=== PATIENT | female | born 1995 | race Hispanic/Latino ===

== ENCOUNTER 2017-10-28 21:41 | Emergency (ER) | payer SELFPAY, OTHER ==
[2017-10-28 23:55] LABS: CONTROL LINE UCG INT CTR LINE PRESENT; URINE PREG TEST NEGATIVE (NEGATIVE)
[2017-10-28 23:56] LABS: KETONE, URINE AUTO RFX TRACE mg/dL (NEGATIVE); LEUKOCYTE ESTERASE UR AUTO RFX NEGATIVE (NEGATIVE); MUCUS, URINE RFX SMALL (NEGATIVE); NITRITE, URINE AUTO RFX NEGATIVE (NEGATIVE); RBC, URINE AUTO RFX 0 /HPF (0-3); SPECIFIC GRAVITY UR AUTO RFX 1.013 (1.002-1.035); SQUAM EPITHELIAL CELL UR AURFX 12 /HPF (0-6); WBC, URINE AUTO RFX 1 /HPF (0-3)
[2017-10-29] MEDS: cefTRIAXone SOD 250 MG VIAL (J0696) IM (00:38)
[2017-10-29] MEDS: AZITHROMYCIN 250 MG TAB PO (00:39)
[2017-10-29 01:52] LABS: CHLAMYDIA DNA AMPLIFICATION NEGATIVE (NEGATIVE); GC DNA AMPLIFICATION NEGATIVE (NEGATIVE)
== END 2017-10-29 01:00 | disposition home or self-care (01) ==
LOC: M ED 21:41
DX: Z20.2 Contact with and (suspected) exposure to infections with a predominantly sexual mode of transmission (principal); N89.8 Other specified noninflammatory disorders of vagina; F41.9 Anxiety disorder, unspecified; F32.9 Major depressive disorder, single episode, unspecified; F17.200 Nicotine dependence, unspecified, uncomplicated
CPT/HCPCS: J0696

== ENCOUNTER → 2018-02-24 | Outpatient (CLI) | payer OTHER | LOC: M OUTALCOH 08:10 | DX: Z13.9 Encounter for screening, unspecified (principal); F10.20 Alcohol dependence, uncomplicated ==

== ENCOUNTER → 2018-03-16 | Outpatient (CLI) | payer OTHER ==
[2018-03-16 14:50] LABS: LUTEINIZING HORMONE 4.6 mIU/mL; PROLACTIN 6.6 NG/ML
[2018-03-16 14:52] LABS: FOLLICLE STIMULATING HORMONE 7.6 mIU/mL
[2018-03-16 15:28] LABS: FREE T4 0.82 NG/DL (0.76-1.46)
[2018-03-20 00:07] LABS: 17 HYDROXY PROGESTERONE 19 ng/dL (.); TESTOSTERONE FREE (DIRECT) 3.7 pg/mL (0.0-4.2)
== END ==
LOC: M LAB 13:28
DX: N97.9 Female infertility, unspecified (principal)
CPT/HCPCS: 83001

== ENCOUNTER 2018-04-12 11:20 | Outpatient (RCR) | payer OTHER | END 2018-05-12 | LOC: M OUTALCOH 11:20 | DX: F10.20 Alcohol dependence, uncomplicated (principal) ==

== ENCOUNTER 2018-05-18 11:29 | Outpatient (RCR) | payer OTHER | END 2018-06-11 | LOC: M OUTALCOH 05-24 14:00 | DX: F10.20 Alcohol dependence, uncomplicated (principal) ==

== ENCOUNTER → 2018-06-25 | Outpatient (CLI) | payer OTHER | LOC: M OUTALCOH 07:41 | DX: Z13.9 Encounter for screening, unspecified (principal); F10.20 Alcohol dependence, uncomplicated ==

== ENCOUNTER 2018-08-10 11:00 | Outpatient (RCR) | payer OTHER ==
[~2018-08-10 11:00] MED LIST: NITR100C2 PO; TRAZ-160 PO; VIST25CA PO; ZOLO25TA PO
== END 2018-08-12 ==
LOC: M OUTALCOH 11:00
PROVIDERS: ATTEND Psychiatry & Neurology Psychiatry
DX: F10.10 Alcohol abuse, uncomplicated (principal)

== ENCOUNTER → 2018-08-17 | Outpatient (REF) | payer OTHER | LOC: M LAB REF 17:16 | PROVIDERS: ATTEND Advanced Practice Midwife | DX: Z34.01 Encounter for supervision of normal first pregnancy, first trimester (principal) ==

== ENCOUNTER → 2018-08-31 | Outpatient (REF) | payer OTHER ==
[~2018-08-31] MED LIST changes: +ACET1TAB55 PO
[2018-08-31 23:18] LABS: CHLAMYDIA DNA AMPLIFICATION NEGATIVE (NEGATIVE); GC DNA AMPLIFICATION NEGATIVE (NEGATIVE)
== END ==
LOC: M LAB REF 19:23
PROVIDERS: ATTEND Physician Assistant
DX: R30.0 Dysuria (principal)

== ENCOUNTER 2018-09-05 18:48 | Emergency (ER) | payer OTHER, SELFPAY ==
[~2018-09-05] VITALS: Ht 162.6 cm; Wt 72.7 kg
[~2018-09-05 18:48] MED LIST changes: -ACET1TAB55 PO
[2018-09-05] MEDS ORDERED: ACET1TAB55 PO (18:54)
[2018-09-05 20:23] LABS: INFLUENZA A AMPLIFICATION NEGATIVE (NEGATIVE); INFLUENZA B AMPLIFICATION NEGATIVE (NEGATIVE)
[2018-09-05] MEDS ORDERED: ACETAMINOPHEN TAB 650MG DOSE (2X325MG) PO ONE (20:30)
[2018-09-05 20:37] VITALS: BP 121/62
== END 2018-09-05 20:49 | disposition home or self-care (01) ==
LOC: M ED 18:48
DX: J06.9 Acute upper respiratory infection, unspecified (principal); F41.9 Anxiety disorder, unspecified

== ENCOUNTER 2018-09-07 10:00 | Outpatient (RCR) | payer OTHER ==
[~2018-09-07 10:00] MED LIST changes: +ACET1TAB55 PO
== END 2018-09-09 ==
LOC: M OUTALCOH 10:00
PROVIDERS: ATTEND Psychiatry & Neurology Psychiatry
DX: F10.10 Alcohol abuse, uncomplicated (principal)

== ENCOUNTER 2018-09-21 09:00 | Outpatient (RCR) | payer OTHER | END 2018-10-10 | LOC: M OUTALCOH 09:00 | PROVIDERS: ATTEND Psychiatry & Neurology Psychiatry | DX: F10.10 Alcohol abuse, uncomplicated (principal) ==